=== PATIENT | female | born 1955 | race Caucasian/White ===

== ENCOUNTER 2020-11-24 14:34 | Inpatient (IN) ==
[2020-11-24 14:44] VITALS: BMI 18.6
[2020-11-24] MEDS ORDERED: NS 1000 ML 1,000 ML IV ONE (14:46)
--- NOTE | 2020-11-24 14:53 | DR.GENAD ---
HPI Time Seen Time Seen by Provider: 11/24/20 14:46 PCP Primary Care Physician: CARLO RAND Complaint/Symptoms Chief Complaint Doctors Comments: pt states for several months she has been dizzy and weak she also feels sob today but she is not coughing and no fever denies cp, she does smoke and drink etoh no fever no sick contacts and no travel Chief Complaint:: PT ARRIVED TO ER VIA EMS WITH C/O GENERALIZED WEAKNESS AND DIZZINESS THAT HAS PROGRESSIVELY WORSENED OVER PAST TWO MONTHS. PT ALSO C/O PROGRESSIVELY WORSENING SHORTNESS OF BREATH WITH NONPRODUCTIVE COUGH. COVID-19 Coronavirus risk:travel/contact w/high risk person: No Has patient experienced Coronavirus symptoms: Yes Coronavirus symptoms experienced: Coughing and Shortness of Breath Nurses notes reviewed Nurses Notes Review: Yes Source History Provided: Patient Mode of Arrival Mode of Arrival: Ambulatory Timing Onset of Chief Complaint: 11/24/20 Came on: Gradually Duration Duration: Unknown Severity Severity: Mild PMH PMH Past Medical History: Yes Past Medical History: Hypertension and Hypothyroidism Past Surgical History: No Family History History of Family Medical Conditions: No Family Medical History: Diabetes Mellitus and Cancer Social History Does patient currently use any type of tobacco product: Yes Have you used tobacco products in the last 12 months: Yes Type of Tobacco Use: Cigarettes Does any household member use tobacco: Yes Alcohol Use: DAILY Do you use any recreational Drugs:: No Lives With: Family Lives Where: Home Infectious screening In the last 2 months have you had wt loss of >10#?: NO Have you had fever, night sweats or hemotysis?: No Have you traveled outside the country in the last 6 months?: No Isolation: Standard ROS Review of Systems Constitutional: No Symptoms Reported and See HPI Eyes: No Symptoms Reported and See HPI ENTM: No Symptoms Reported and See HPI Respiratoy: See HPI and Dry Cough Cardiovascular: No Symptoms Reported and See HPI Gastrointestinal/Abdominal: No Symptoms Reported and See HPI Genitourinary: No Symptoms Reported and See HPI Neurological: No Symptoms Reported and See HPI Musculoskeletal: No Symptoms Reported and See HPI Integumentary: No Symptoms Reported and See HPI Hematologic/Lymphatic: No Symptoms Reported and See HPI Endocrine: No Symptoms Reported and See HPI Psychiatric: No Symptoms Reported and See HPI All Other Systems: Reviewed and Negative PE Vital Signs Vitals: Temperature 98.9 F Pulse Rate 120 Respiratory Rate 20 Blood Pressure [Right Arm] 149/75 Blood Pressure 140/86 O2 Sat by Pulse Oximetry 98 General Limitations: No Limitations General Appearance: Alert and In No Apparent Distress Head Head Exam: Normal Inspection, Atraumatic and Normocephalic Eyes Eye exam: Normal Appearance, PERRL and EOMI ENT ENT Exam: Normal Exam and Normal Oropharynx Nose Exam: Normal Nose Exam Mouth Exam: Normal Inspection Throat Exam: Normal Inspection Neck Neck Exam: Normal Inspection, Full ROM and Trachea Midline Chest Chest Inspection: Normal Inspection Respiratory Respiratory Exam: Normal Lung Sounds Bilat Cardiovascular Cardiovascular Exam: Regular Rate and Normal Rhythm Abdominal Exam Abdominal Exam: Normal Inspection, Normal Bowel Sounds and Soft Extremities Extremities Exam: Normal Inspection and Full ROM Neurologic Neurological Exam: Alert, Oriented X3 and CN II-XII Intact Skin Skin Exam: Warm, Dry, Intact and Normal Color MDM Differential Diagnosis Differential Diagnosis: weakness, sob, cough, v ertigo COURSE Reevaluation 1st: Unchanged Education/Counseling Education/Counseling: Patient Educated On: Treatment, Diagnosis and Prognosis ROR Labs Reviewed Laboratory Results Reviewed?: Yes Result Diagrams: 11/24/20 14:59 11/24/20 14:59 Laboratory: WBC 7.3 X10^3/uL (3.6-10.0) 11/24/20 14:59 RBC 5.46 X10^6/uL (3.5-5.4) H 11/24/20 14:59 Hgb 17.7 g/dL (12.0-16.0) H 11/24/20 14:59 Hct 50.8 % (36.0-47.0) H 11/24/20 14:59 MCV 93.0 fL (80.0-100.0) 11/24/20 14:59 MCH 32.5 pg (27.0-34.0) 11/24/20 14:59 MCHC 34.9 g/dL (33.0-35.0) 11/24/20 14:59 RDW 13.0 % (11.6-16.5) 11/24/20 14:59 Plt Count 339 X10^3/uL (150.0-450.0) 11/24/20 14:59 MPV 6.8 fL (7.4-11.0) L 11/24/20 14:59 Neut % (Auto) 80.4 % (42.0-75.0) H 11/24/20 14:59 Lymph % (Auto) 10.1 % (21.0-51.0) L 11/24/20 14:59 [place] % (Auto) 8.8 % (0.0-13.0) 11/24/20 14:59 Eos % (Auto) 0.2 % (0.9-2.9) L 11/24/20 14:59 Baso % (Auto) 0.5 % (0.2-1.0) 11/24/20 14:59 Neut # (Auto) 5.8 x10^3/uL (2.2-4.8) H 11/24/20 14:59 Lymph # (Auto) 0.7 X10^3/uL (1.3-2.9) L 11/24/20 14:59 [place] # (Auto) 0.6 x10^3/uL (0.3-0.8) 11/24/20 14:59 Eos # (Auto) 0.0 x10^3/uL (0.0-0.2) 11/24/20 14:59 Baso # (Auto) 0.0 X10^3/uL (0.0-0.1) 11/24/20 14:59 Absolute Nucleated RBC 0.2 /100WBC 11/24/20 14:59 Sodium 131 mmol/L (136-145) L 11/24/20 14:59 Corrected Sodium TNP 11/24/20 14:59 Potassium 3.9 mmol/L (3.5-5.1) 11/24/20 14:59 Chloride 93 mmol/L (98-107) L 11/24/20 14:59 Carbon Dioxide 30.0 mmol/L (21-32) 11/24/20 14:59 BUN 5 mg/dL (7-18) L 11/24/20 14:59 Creatinine 0.67 mg/dL (0.55-1.02) 11/24/20 14:59 Est GFR (MDRD) Af Amer > 60 (>60) 11/24/20 14:59 Est GFR (MDRD) Non-Af > 60 (>60) 11/24/20 14:59 Glucose 102 mg/dL (65-99) H 11/24/20 14:59 Lactic Acid 1.1 mmol/L (0.4-2.0) 11/24/20 15:49 Calcium 8.7 mg/dL (8.5-10.1) 11/24/20 14:59 Corrected Calcium 9.4 mg/dL (8.5-10.1) 11/24/20 14:59 Total Bilirubin 1.00 mg/dL (0.2-1.0) 11/24/20 14:59 AST 16 Units/L (15-37) 11/24/20 14:59 ALT 17 Units/L (12-78) 11/24/20 14:59 Alkaline Phosphatase 85 Units/L (46-116) 11/24/20 14:59 Creatine Kinase 27 Units/L (26-192) 11/24/20 14:59 Troponin I < 0.02 ng/mL (0-1.5) 11/24/20 14:59 B-Natriuretic Peptide 45.2 pg/mL (0-79) 11/24/20 14:59 Total Protein 7.2 g/dL (6.4-8.2) 11/24/20 14:59 Albumin 3.1 g/dL (3.4-5.0) L 11/24/20 14:59 Globulin 4.1 g/dL (2.5-4.5) 11/24/20 14:59 Albumin/Globulin Ratio 0.8 Ratio (1.1-2.1) L 11/24/20 14:59 TSH 3rd Generation 0.733 uIU/mL (0.358-3.74) 11/24/20 14:59 Influenza Type A (PCR) Negative (NEGATIVE) 11/24/20 15:23 Influenza Type B (PCR) Negative (NEGATIVE) 11/24/20 15:23 SARS CoV-2 RNA Rapid JANE Negative (NEGATIVE) 11/24/20 15:23 XRAY XRAY Interpreted by: Radiologist X-ray Results: pneumonia EKG Rate: 111 Rhythm: Afib (new onset with rvr) ST: Ischemia Opioid Opioid Risk Tool Age (Froylan box if 16-45): No History of Preadolescent Sexual Abuse: No Total: 0 Total Score Risk Category: Low Risk Copyright: [facility] predicting aberrant behaviors Diagnosis Discharge Problem: Atrial fibrillation with RVR, Weakness Pneumonia Qualifiers: Pneumonia type: due to unspecified organism Laterality: right Lung location: lower lobe of lung Qualified Code(s): J18.9 - Pneumonia, unspecified organism Instructions Instructions: Atrial Fibrillation, [id number] Community-Acquired Pneumonia, Adult, [id number] Forms: Precautions for COVID19 Patient Portal Social Distancing
--- NOTE | 2020-11-24 15:07 | RAD ---
HISTORYDizzy SOBSTUDYAP chest two [id number]/20/2020FINDINGSThe heart is normal in size. The lungs remain hyperaerated. There is no acute lesion suspected in the right lung. On the left, the left hilum is slightly prominent and dense and there is suggestion of an infiltrate extending superiorly into the left upper lobe. There is slight relative widening of the left superior mediastinum. No lower lobe abnormality or pleural fluid or bone destruction is seen.IMPRESSIONFindings described at the left hilum and left upper lobe may represent chronic postinflammatory scarring or a more acute inflammatory or neoplastic process. If there are no remote chest exams available to confirm stability, follow-up imaging is recommended.Electronically signed by: PAULINE ADAMS (Nov 24, 2020 15:05:27)
[2020-11-24] MEDS ORDERED: NS 1000 ML 1,000 ML ONE (15:19)
[2020-11-24 15:20] LABS: BASOPHILS % (AUTO) 0.5 % (0.2-1.0); EOSINOPHILS % (AUTO) 0.2 % (0.9-2.9); HEMATOCRIT 50.8 % (36.0-47.0); HEMOGLOBIN 17.7 g/dL (12.0-16.0); LYMPHOCYTES # (AUTO) 0.7 X10^3/uL (1.3-2.9); LYMPHOCYTES % (AUTO) 10.1 % (21.0-51.0); MEAN CORPUSCULAR HEMOGLOBIN 32.5 pg (27.0-34.0); MEAN CORPUSCULAR HGB CONC 34.9 g/dL (33.0-35.0); MEAN PLATELET VOLUME 6.8 fL (7.4-11.0); MONOCYTES # (AUTO) 0.6 x10^3/uL (0.3-0.8); MONOCYTES % (AUTO) 8.8 % (0.0-13.0); NEUTROPHILS # (AUTO) 5.8 x10^3/uL (2.2-4.8); NEUTROPHILS % (AUTO) 80.4 % (42.0-75.0); PLATELET COUNT 339 X10^3/uL (150.0-450.0); RED BLOOD COUNT 5.46 X10^6/uL (3.5-5.4); WHITE BLOOD COUNT 7.3 X10^3/uL (3.6-10.0)
[2020-11-24] MEDS ORDERED: CARDIZEM INJ 50 MG VIAL IVP ONE (15:31)
[2020-11-24 15:32] LABS: CREATINE KINASE 27 Units/L (26-192); TROPONIN I < 0.02 ng/mL (0-1.5)
[2020-11-24] MEDS ORDERED: CARDIZEM INJ 50 MG VIAL ONE (15:32)
[2020-11-24 15:38] LABS: ALANINE AMINOTRANSFERASE 17 Units/L (12-78); ALBUMIN 3.1 g/dL (3.4-5.0); ALKALINE PHOSPHATASE 85 Units/L (46-116); ASPARTATE AMINO TRANSFERASE 16 Units/L (15-37); BLOOD UREA NITROGEN 5 mg/dL (7-18); CALCIUM 8.7 mg/dL (8.5-10.1); CHLORIDE 93 mmol/L (98-107); COR CA(FOR HYPOALB) 9.4 mg/dL (8.5-10.1); CREATININE 0.67 mg/dL (0.55-1.02); SODIUM 131 mmol/L (136-145); TOTAL PROTEIN 7.2 g/dL (6.4-8.2); TSH (3RD GENERATION) 0.733 uIU/mL (0.358-3.74); eGFR NON BLACK RACES > 60 (>60)
[2020-11-24] MEDS ORDERED: ZITHROMAX INJ 500 MG VIAL 500 MG in NS 250 ML IV 250 ML IV SCH (15:40)
[2020-11-24] MEDS ORDERED: ZITHROMAX INJ 500 MG VIAL IV ONE (16:00)
[2020-11-24] MEDS ORDERED: NS 250 ML IV 250 ML IV ONE (16:00)
[2020-11-24] MEDS ORDERED: HEPARIN SODIUM INJ 5000 UNITS IVP ONE (17:00)
[2020-11-24] MEDS ORDERED: HEPARIN SODIUM INJ 5000 UNITS ONE (17:23)
[2020-11-24] MEDS: CARDIZEM ER 60 MG 12-HR PO SCH (21:07)
[2020-11-25] MEDS: CARDIZEM ER 60 MG 12-HR PO SCH ×2 (08:39→20:32)
[2020-11-25] MEDS ORDERED: ZITHROMAX INJ 500 MG VIAL 500 MG in NS 250 ML IV 250 ML IV SCH (09:00)
[2020-11-25] MEDS: DUONEB 0.5 MG/3 MG (3 mL) NEB SCH ×3 (09:29→20:30)
[2020-11-25] MEDS ORDERED: NS 100 ML IV 100 ML IV ONE (10:01)
[2020-11-25] MEDS: ROCEPHIN VIAL 1 GRAM 1 G in NS 100 ML IV + SPIKE MINIBAG* 100 ML IV SCH (10:40)
--- NOTE | 2020-11-25 11:14 | CT ---
HISTORYhypoxia r/o PESTUDYCTA CHESTCOMPARISONNoneTECHNIQUEMultiple axial images of the chest were obtained from the thoracic inlet to the upper abdomen after the administration of IV contrast. 3D reconstructions utilizing axial MIPS imaging was performed and reviewed. Dose reduction techniques including Automated Exposure Control (AEC) and adjustment of mA and kV were utilized.FINDINGSThe mediastinum does demonstrate some enlarged nodes. There is a large pre-vascular conglomeration measuring 3.9 x 6.3 cm. There is also a smaller more inferior pre-vascular node measuring 1.4 cm and a large left hilar mass measuring 5.3 by 5.2 cm. Other sub carinal nodes are noted as well. Large hilar mass markedly narrows the pulmonary artery on the left.. There is no pericardial effusion observed. The thoracic aorta is normal in its contour without evidence for aneurysmal dilatation. The central pulmonary arterial system does not demonstrate central filling defects to suggest pulmonary emboli.Evaluation of the lung parenchyma demonstrates some interstitial changes in left upper lobe with some tiny nodules concerning for possible malignant involvement. Mild emphysematous changes are noted.. There is also a 5 mm left lower lobe nodule on image 96 which could be malignant in nature given the associated adenopathy. There is also some probable scarring in the lung apices. The bony thorax is unremarkable in its appearance . 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 There is no evidence for any pulmonary embolus. Continued follow-up is recommended. Correlation with PET-CT may be of benefitElectronically signed by: MICHELLE MARTINEZ (Nov 25, 2020 11:13:10)
--- NOTE | 2020-11-25 13:04 | DR.H&P ---
H&P History & Physical for Day of: H&P Date: 11/25/20 Chief Complaint Chief Complaint: weakness, SOB Allergies Allergies Allergy/AdvReac Type Severity Reaction Status Date / Time No Known Drug Allergies Allergy Verified 11/18/20 15:08 [NKDA] History of Present Illness History of Present Illness: Ms. Metzger is a 65y/o female with a PMH of hypothyroidism and HTN and tobacco use presented with worsening dyspnea and weakness. Patient states it has gradually been worsening for the past few months. She did come to the ED a week ago due to weakness in her legs and arm, was concerned about a stroke. She states everything was normal so she was discharged home. Yesterday, she felt weaker and worsening dyspnea. She smokes 1 PPD. Denies fever or chills. Denies chest pain. Does reports productive cough. She sees a PA in [place]. She has never been admitted for anything. FH of lung and colon cancer. ED work-up- CXR: infiltrate noted in the left hilum, some scarring and possible inflammatory/ neoplastic process. Patient was noted to be in atrial fibrillation with RVR. She received IV Cardizem and converted to NSR. She states she feels better this morning. Labs: Hgb 17.7 WBC 7.3 Na 131 BUN/Cr 5/0.67 Trop (-) lactic acid 1.1 Flu (-) COVID (-) Plan: will get a CTA of chest to eval further. Patient is currently on room air. Continue PO diltiazem. Will start FD lovenox. Continue telemetry. ECHO ordered. Start Rocephin and duonebs. Gentle hydration. Monitor AM labs. Past Medical History Past Medical History: Hypertension and Hypothyroidism Family History Family Medical History: Diabetes Mellitus and Cancer Social History Does patient currently use any type of tobacco product: Yes Have you used tobacco products in the last 12 months: Yes Type of Tobacco Use: Cigarettes Does any household member use tobacco: Yes Alcohol Use: DAILY Drug Use: None Medications Home Medications: No Known Drug Allergies [NKDA] Allergy (Verified 11/18/20 15:08) Labs Result Diagrams: 11/24/20 14:59 11/24/20 14:59 Labs: Laboratory WBC 7.3 X10^3/uL (3.6-10.0) 11/24/20 14:59 RBC 5.46 X10^6/uL (3.5-5.4) H 11/24/20 14:59 Hgb 17.7 g/dL (12.0-16.0) H 11/24/20 14:59 Hct 50.8 % (36.0-47.0) H 11/24/20 14:59 MCV 93.0 fL (80.0-100.0) 11/24/20 14:59 MCH 32.5 pg (27.0-34.0) 11/24/20 14:59 MCHC 34.9 g/dL (33.0-35.0) 11/24/20 14:59 RDW 13.0 % (11.6-16.5) 11/24/20 14:59 Plt Count 339 X10^3/uL (150.0-450.0) 11/24/20 14:59 MPV 6.8 fL (7.4-11.0) L 11/24/20 14:59 Neut % (Auto) 80.4 % (42.0-75.0) H 11/24/20 14:59 Lymph % (Auto) 10.1 % (21.0-51.0) L 11/24/20 14:59 [place] % (Auto) 8.8 % (0.0-13.0) 11/24/20 14:59 Eos % (Auto) 0.2 % (0.9-2.9) L 11/24/20 14:59 Baso % (Auto) 0.5 % (0.2-1.0) 11/24/20 14:59 Neut # (Auto) 5.8 x10^3/uL (2.2-4.8) H 11/24/20 14:59 Lymph # (Auto) 0.7 X10^3/uL (1.3-2.9) L 11/24/20 14:59 [place] # (Auto) 0.6 x10^3/uL (0.3-0.8) 11/24/20 14:59 Eos # (Auto) 0.0 x10^3/uL (0.0-0.2) 11/24/20 14:59 Baso # (Auto) 0.0 X10^3/uL (0.0-0.1) 11/24/20 14:59 Absolute Nucleated RBC 0.2 /100WBC 11/24/20 14:59 Sodium 131 mmol/L (136-145) L 11/24/20 14:59 Corrected Sodium TNP 11/24/20 14:59 Potassium 3.9 mmol/L (3.5-5.1) 11/24/20 14:59 Chloride 93 mmol/L (98-107) L 11/24/20 14:59 Carbon Dioxide 30.0 mmol/L (21-32) 11/24/20 14:59 BUN 5 mg/dL (7-18) L 11/24/20 14:59 Creatinine 0.67 mg/dL (0.55-1.02) 11/24/20 14:59 Est GFR (MDRD) Af Amer > 60 (>60) 11/24/20 14:59 Est GFR (MDRD) Non-Af > 60 (>60) 11/24/20 14:59 Glucose 102 mg/dL (65-99) H 11/24/20 14:59 Lactic Acid 1.1 mmol/L (0.4-2.0) 11/24/20 15:49 Calcium 8.7 mg/dL (8.5-10.1) 11/24/20 14:59 Corrected Calcium 9.4 mg/dL (8.5-10.1) 11/24/20 14:59 Total Bilirubin 1.00 mg/dL (0.2-1.0) 11/24/20 14:59 AST 16 Units/L (15-37) 11/24/20 14:59 ALT 17 Units/L (12-78) 11/24/20 14:59 Alkaline Phosphatase 85 Units/L (46-116) 11/24/20 14:59 Creatine Kinase 27 Units/L (26-192) 11/24/20 14:59 Troponin I < 0.02 ng/mL (0-1.5) 11/24/20 14:59 B-Natriuretic Peptide 45.2 pg/mL (0-79) 11/24/20 14:59 Total Protein 7.2 g/dL (6.4-8.2) 11/24/20 14:59 Albumin 3.1 g/dL (3.4-5.0) L 11/24/20 14:59 Globulin 4.1 g/dL (2.5-4.5) 11/24/20 14:59 Albumin/Globulin Ratio 0.8 Ratio (1.1-2.1) L 11/24/20 14:59 TSH 3rd Generation 0.733 uIU/mL (0.358-3.74) 11/24/20 14:59 Influenza Type A (PCR) Negative (NEGATIVE) 11/24/20 15:23 Influenza Type B (PCR) Negative (NEGATIVE) 11/24/20 15:23 SARS CoV-2 RNA Rapid JANE Negative (NEGATIVE) 11/24/20 15:23 Review of Systems Constitutional: Weakness and Malaise Eyes: No Symptoms Reported ENT: No Symptoms Reported Respiratory: Cough, Shortness of Breath, SOB with Excertion and Sputum Cardiovascular: No Symptoms Reported Gastrointestinal: No Symptoms Reported Genitourinary: No Symptoms Reported Musculoskeletal: No Symptoms Reported Skin: No Symptoms Reported Physical Exam Vital Signs: Temperature 97.8 F Pulse Rate [Left Radial] 95 Pulse Rate 120 Respiratory Rate 18 Blood Pressure [Right Arm] 126/59 Blood Pressure 140/86 O2 Sat by Pulse Oximetry 94 Oriented: Normal Eyes: Normal Ear: Normal Throat: Normal Respiratory: LML Diminished, LLL Diminished and LLL Rhonchi Cardiovascular: Normal Auscultation: Bowel Sounds: Normal Palpation: Normal Tenderness: Normal Skin: Decreased [place]urg[place] Musculoskeletal: Normal Psychiatric: Normal Mood Description: Calm Affect: Normal Speech Pattern: Clear and Appropriate Assessment/Plan (1) Atrial fibrillation with RVR: Status: Acute (2) Pneumonia: Qualifiers: Laterality: right Lung location: lower lobe of lung Pneumonia type: due to unspecified organism Qualified Code(s): J18.9 - Pneumonia, unspecified organism Status: Acute (3) Weakness: Status: Acute Review H&P Reviewed: Yes Patient was examined?: Yes
[2020-11-25] MEDS: NS 1000 ML 1,000 ML IV SCH ×2 (13:58→23:53)
[2020-11-25] MEDS ORDERED: SYNTHROID 50 mcg TAB PO SCH (16:30)
[2020-11-25] MEDS: LOVENOX INJ 60 MG SYR SC SCH (20:35)
[2020-11-26] MEDS: DUONEB 0.5 MG/3 MG (3 mL) NEB SCH (05:40)
[2020-11-26 07:03] LABS: BASOPHILS # (AUTO) 0.1 X10^3/uL (0.0-0.1); BASOPHILS % (AUTO) 0.9 % (0.2-1.0); EOSINOPHILS # (AUTO) 0.1 x10^3/uL (0.0-0.2); EOSINOPHILS % (AUTO) 1.7 % (0.9-2.9); HEMATOCRIT 46.4 % (36.0-47.0); HEMOGLOBIN 16.2 g/dL (12.0-16.0); LYMPHOCYTES # (AUTO) 0.8 X10^3/uL (1.3-2.9); LYMPHOCYTES % (AUTO) 11.9 % (21.0-51.0); MEAN CORPUSCULAR HEMOGLOBIN 32.8 pg (27.0-34.0); MEAN CORPUSCULAR HGB CONC 34.8 g/dL (33.0-35.0); MEAN CORPUSCULAR VOLUME 94.4 fL (80.0-100.0); MEAN PLATELET VOLUME 7.4 fL (7.4-11.0); MONOCYTES # (AUTO) 0.7 x10^3/uL (0.3-0.8); MONOCYTES % (AUTO) 11.1 % (0.0-13.0); NEUTROPHILS # (AUTO) 4.9 x10^3/uL (2.2-4.8); NEUTROPHILS % (AUTO) 74.4 % (42.0-75.0); PLATELET COUNT 329 X10^3/uL (150.0-450.0); RED BLOOD COUNT 4.92 X10^6/uL (3.5-5.4); RED CELL DISTRIBUTION WIDTH 13.1 % (11.6-16.5); WHITE BLOOD COUNT 6.6 X10^3/uL (3.6-10.0)
[2020-11-26 07:07] LABS: BLOOD UREA NITROGEN 4 mg/dL (7-18); CALCIUM 8.9 mg/dL (8.5-10.1); CARBON DIOXIDE 26.3 mmol/L (21-32); CHLORIDE 99 mmol/L (98-107); COR NA(FOR HYPERGLY) 137 mmol/L (136-145); SODIUM 135 mmol/L (136-145); eGFR NON BLACK RACES > 60 (>60)
[2020-11-26] MEDS ORDERED: POTASSIUM CHL 40 MEQ/NS 0.45% 500 ML IV ONE (07:39)
[2020-11-26] MEDS ORDERED: NORVASC TAB 10 MG PO SCH (09:00)
[2020-11-26] MEDS ORDERED: K-DUR TAB 20 MEQ PO SCH (09:00)
[2020-11-26] MEDS ORDERED: ZESTRIL TAB 10 MG PO SCH (09:00)
[2020-11-26] MEDS: ROCEPHIN VIAL 1 GRAM 1 G in NS 100 ML IV + SPIKE MINIBAG* 100 ML IV SCH (09:58)
[2020-11-26] MEDS: CARDIZEM ER 60 MG 12-HR PO SCH (09:59)
[2020-11-26] MEDS: LOVENOX INJ 60 MG SYR SC SCH ×2 (09:59→10:03)
[2020-11-26] MEDS ORDERED: ELIQUIS PO SCH (10:45)
[2020-11-26] MEDS: NS 1000 ML 1,000 ML IV SCH (11:13)
[2020-11-26 12:19] VITALS: BP 139/65
[2020-11-26 13:26] LABS: BLOOD UREA NITROGEN 4 mg/dL (7-18); CARBON DIOXIDE 28.5 mmol/L (21-32); CHLORIDE 98 mmol/L (98-107); COR NA(FOR HYPERGLY) 135 mmol/L (136-145); CREATININE 0.69 mg/dL (0.55-1.02); SODIUM 134 mmol/L (136-145); eGFR NON BLACK RACES > 60 (>60)
[2020-11-26 13:36] LABS: CALCIUM 8.9 mg/dL (8.5-10.1)
--- NOTE | 2020-11-26 13:54 | W.DIS.FURT ---
Summary of Discharge Admission Diagnosis Patient Problems (Updated 11/26/20 @ 10:38 by Nikki Jade) Atrial fibrillation with RVR (Acute) I48.91 Pneumonia (Acute) J18.9 Weakness (Acute) R53.1 Vital Signs: Vital Signs (72 hours) 11/24/20 14:35 11/24/20 18:40 11/24/20 20:00 Temperature 98.9 F 98.2 F Pulse Rate 120 H Pulse Rate [Left Radial] 87 Respiratory Rate 20 20 20 Blood Pressure 140/86 Blood Pressure [Right Arm] 145/70 O2 Sat by Pulse Oximetry 98 98 95 11/25/20 00:00 11/25/20 04:00 11/25/20 08:00 Temperature 98.3 F 97.7 F 97.8 F Pulse Rate Pulse Rate [Left Radial] 72 70 95 H Respiratory Rate 18 20 18 Blood Pressure Blood Pressure [Right Arm] 119/57 136/67 126/59 O2 Sat by Pulse Oximetry 95 94 L 94 L 11/25/20 12:00 11/25/20 14:00 11/25/20 16:00 Temperature 97.8 F 98.0 F Pulse Rate Pulse Rate [Left Radial] 75 75 Respiratory Rate 18 20 Blood Pressure Blood Pressure [Right Arm] 129/62 124/59 O2 Sat by Pulse Oximetry 95 95 96 11/25/20 20:00 11/25/20 20:30 11/26/20 00:00 Temperature 98.7 F 97.5 F L Pulse Rate 73 Pulse Rate [Left Radial] 75 79 Respiratory Rate 18 20 Blood Pressure Blood Pressure [Right Arm] 132/65 142/70 O2 Sat by Pulse Oximetry 95 94 L 96 11/26/20 04:00 11/26/20 05:40 11/26/20 08:00 Temperature 98.1 F 97.8 F Pulse Rate 83 Pulse Rate [Left Radial] 76 84 Respiratory Rate 21 21 Blood Pressure Blood Pressure [Right Arm] 118/71 153/73 O2 Sat by Pulse Oximetry 95 96 96 11/26/20 12:00 Temperature 98.2 F Pulse Rate Pulse Rate [Left Radial] 74 Respiratory Rate 20 Blood Pressure Blood Pressure [Right Arm] 139/65 O2 Sat by Pulse Oximetry 97 Labs: Laboratory Last Values WBC 6.6 X10^3/uL (3.6-10.0) 11/26/20 05:25 RBC 4.92 X10^6/uL (3.5-5.4) 11/26/20 05:25 Hgb 16.2 g/dL (12.0-16.0) H 11/26/20 05:25 Hct 46.4 % (36.0-47.0) 11/26/20 05:25 MCV 94.4 fL (80.0-100.0) 11/26/20 05:25 MCH 32.8 pg (27.0-34.0) 11/26/20 05:25 MCHC 34.8 g/dL (33.0-35.0) 11/26/20 05:25 RDW 13.1 % (11.6-16.5) 11/26/20 05:25 Plt Count 329 X10^3/uL (150.0-450.0) 11/26/20 05:25 MPV 7.4 fL (7.4-11.0) 11/26/20 05:25 Neut % (Auto) 74.4 % (42.0-75.0) 11/26/20 05:25 Lymph % (Auto) 11.9 % (21.0-51.0) L 11/26/20 05:25 [place] % (Auto) 11.1 % (0.0-13.0) 11/26/20 05:25 Eos % (Auto) 1.7 % (0.9-2.9) 11/26/20 05:25 Baso % (Auto) 0.9 % (0.2-1.0) 11/26/20 05:25 Neut # (Auto) 4.9 x10^3/uL (2.2-4.8) H 11/26/20 05:25 Lymph # (Auto) 0.8 X10^3/uL (1.3-2.9) L 11/26/20 05:25 [place] # (Auto) 0.7 x10^3/uL (0.3-0.8) 11/26/20 05:25 Eos # (Auto) 0.1 x10^3/uL (0.0-0.2) 11/26/20 05:25 Baso # (Auto) 0.1 X10^3/uL (0.0-0.1) 11/26/20 05:25 Absolute Nucleated RBC 0.3 /100WBC 11/26/20 05:25 Sodium 134 mmol/L (136-145) L 11/26/20 13:01 Corrected Sodium 135 mmol/L (136-145) L 11/26/20 13:01 Potassium 3.9 mmol/L (3.5-5.1) 11/26/20 13:01 Chloride 98 mmol/L (98-107) 11/26/20 13:01 Carbon Dioxide 28.5 mmol/L (21-32) 11/26/20 13:01 BUN 4 mg/dL (7-18) L 11/26/20 13:01 Creatinine 0.69 mg/dL (0.55-1.02) 11/26/20 13:01 Est GFR (MDRD) Af Amer > 60 (>60) 11/26/20 13:01 Est GFR (MDRD) Non-Af > 60 (>60) 11/26/20 13:01 Glucose 162 mg/dL (65-99) H 11/26/20 13:01 Lactic Acid 1.1 mmol/L (0.4-2.0) 11/24/20 15:49 Calcium 8.9 mg/dL (8.5-10.1) 11/26/20 13:01 Corrected Calcium 9.4 mg/dL (8.5-10.1) 11/24/20 14:59 Total Bilirubin 1.00 mg/dL (0.2-1.0) 11/24/20 14:59 AST 16 Units/L (15-37) 11/24/20 14:59 ALT 17 Units/L (12-78) 11/24/20 14:59 Alkaline Phosphatase 85 Units/L (46-116) 11/24/20 14:59 Creatine Kinase 27 Units/L (26-192) 11/24/20 14:59 Troponin I < 0.02 ng/mL (0-1.5) 11/24/20 14:59 B-Natriuretic Peptide 45.2 pg/mL (0-79) 11/24/20 14:59 Total Protein 7.2 g/dL (6.4-8.2) 11/24/20 14:59 Albumin 3.1 g/dL (3.4-5.0) L 11/24/20 14:59 Globulin 4.1 g/dL (2.5-4.5) 11/24/20 14:59 Albumin/Globulin Ratio 0.8 Ratio (1.1-2.1) L 11/24/20 14:59 TSH 3rd Generation 0.733 uIU/mL (0.358-3.74) 11/24/20 14:59 Influenza Type A (PCR) Negative (NEGATIVE) 11/24/20 15:23 Influenza Type B (PCR) Negative (NEGATIVE) 11/24/20 15:23 SARS CoV-2 RNA Rapid JANE Negative (NEGATIVE) 11/24/20 15:23 Reason For Visit: A-FIB WITH RVR NEW ONSET,PNEUMONIA RLL Discharge Diagnosis All Active Problems (Updated 11/26/20 @ 10:38 by Nikki Jade) Atrial fibrillation with RVR (Acute) Pneumonia (Acute) Weakness (Acute) Plan of Treatment: Continue with present treatment and follow up plan. Pt is to keep follow up appointment as instructed and take medications as ordered. Discharge Medications Discharge Medications: No Known Drug Allergies [NKDA] Allergy (Verified 11/18/20 15:08) CONTINUE taking the following medications levothyroxine 50 mcg PO DAILY 11/25/20 [History] New Prescriptions albuterol sulfate 2 puff INHALATION Q6H PRN #6.7 g 11/26/20 [Rx] apixaban [Eliquis] 5 mg PO BID 30 Days #60 tab 11/26/20 [Rx] diltiazem HCl 60 mg PO Q12HR 30 Days #60 cap 11/26/20 [Rx] ipratropium-albuterol 3 ml INHALATION Q6H PRN #15 ml 11/26/20 [Rx] lisinopril 20 mg PO DAILY 30 Days #30 tab 11/26/20 [Rx] nebulizers #1 ea 11/26/20 [Rx] Discharge Plan Discharge Plan Patient Disposition: 01 HOME, SELF-CARE Condition: Stable Health Concerns: Post Hospitalization: new medications and changes needed to prevent readmission or further decline. Pt educated and given instructions on all concerns. Plan of Treatment: Continue with present treatment and follow up plan. Pt is to keep follow up appointment as instructed and take medications as ordered. Prescription drug monitoring program results: PDMP reviewed and no concerns identified Prescriptions: New diltiazem HCl 60 mg Capsule,Extended Release 12 Hr 60 mg PO Q12HR 30 Days Qty: 60 RF: 0 Eliquis 5 mg Tablet 5 mg PO BID 30 Days Qty: 60 RF: 0 lisinopril 20 mg tablet 20 mg PO DAILY 30 Days Qty: 30 RF: 0 albuterol sulfate 90 mcg/actuation HFA aerosol inhaler 2 puff inhalation Q6H PRN (Reason: shortness of breath or wheezing) Qty: 6.7 RF: 1 ipratropium-albuterol 0.5 mg-3 mg(2.5 mg base)/3 mL solution for nebulization 3 ml inhalation Q6H PRN (Reason: shortness of breath or wheezing) Qty: 15 RF: 1 (DME) nebulizers Misc See Rx Instructions .ROUTE .MEDSUPPLY Qty: 1 RF: 0 Continued levothyroxine 50 mcg tablet 50 mcg PO DAILY RF: 0 Discontinued amlodipine 10 mg tablet 10 mg PO DAILY RF: 0 lisinopril 10 mg tablet 10 mg PO DAILY RF: 0 Follow ups/Referrals Follow ups/Referrals: WOLFGANG BARROS [Primary Care Provider] - 3 days Instructions Instructions: Atrial Fibrillation, [id number]-hg-[id number] Stand Alone Forms: Excuse From Work or School, Precautions for COVID19, Patient Portal, Social Distancing
[2020-11-27] MEDS ORDERED: ZESTRIL TAB 10 MG PO SCH (09:00)
== END 2020-11-26 15:15 | disposition home or self-care (01) | DRG 308 ==
LOC: ER 14:34 → MED/SURG 17:22
PROVIDERS: ADMIT Internal Medicine; ATTEND Internal Medicine
DX: I10 Essential (primary) hypertension; Z20.828 Contact with and (suspected) exposure to other viral communicable diseases; J18.9 Pneumonia, unspecified organism; E03.8 Other specified hypothyroidism; R06.02 Shortness of breath; R94.31 Abnormal electrocardiogram [ECG] [EKG]; I48.91 Unspecified atrial fibrillation; R42 Dizziness and giddiness; Z72.0 Tobacco use; R53.1 Weakness